=== PATIENT | female | born 1945 ===

== ENCOUNTER 2018-04-30 06:46 | Day surgery (SDC) | payer OTHER ==
[~2018-04-30 06:46] MED LIST: DIOVAN PO; HYZAAR 100/25 T1 TAB PO; NORVASC5 MG PO; PLAVIX75 MG PO
== END 2018-05-01 00:30 | disposition home or self-care (01) ==
LOC: CIR.AMB 06:46
DX: C50.511 Malignant neoplasm of lower-outer quadrant of right female breast (principal)

== ENCOUNTER 2018-09-05 19:27 | Emergency (ER) | payer OTHER ==
[~2018-09-05] VITALS: Ht 162.6 cm; Wt 97.1 kg
[2018-09-05] MEDS ORDERED: PLAVIX75 MG (19:49)
[2018-09-05] MEDS ORDERED: ANASTROZOLE1 MG (19:49)
== END 2018-09-05 21:24 | disposition home or self-care (01) ==
LOC: ER 19:27
DX: H11.32 Conjunctival hemorrhage, left eye (principal)